=== PATIENT | female | born 1990 | race Caucasian/White ===

== ENCOUNTER 2021-10-01 13:35 | Outpatient (CLI) | payer OTHER ==
--- NOTE | 2021-10-01 14:45 | Ultrasound Report ---
PROCEDURE: Pelvic w/Transvaginal INDICATIONS: INTERMENSTRAL BLEEDING TECHNIQUE: Real-time scanning was performed of the pelvic organs, with image documentation. Additional endovagi nal scanning was necessary due to incomplete visualization of the adnexal and endometrial structures by transabdominal scanning. COMPARISON: None. FINDINGS: No pathologic free abdominal or pelvic fluid. Uterus: Uterus is normal in size at 8.4 x 2.3 x 4.2 cm. Uterine volume measures 41.1 mL. The endome trium measures 4 mm in combined thickness. Homogeneous uterine echotexture. No focal intrauterine le sions. Ovaries: Bilateral ovaries are normal in size and appearance. No suspicious ovarian or adnexal mass lesions. Right ovary measures 3.9 x 1.6 x 2.7 cm with ovarian volume of 8.6 mL. Left ovary measures 3 .1 x 1.7 x 2.3 cm with ovarian volume of 6.4 mL. IMPRESSION: Normal sonographic evaluation of the pelvis. Reviewed by: Phillip Thomas MD on 10/01/2021 2:44 PM PDT Approved by: Phillip Thomas MD on 10/01/2021 2:44 PM PDT Station ID: [id number]
== END 2021-10-01 13:36 | disposition home or self-care (01) ==
LOC: DI 13:35
PROVIDERS: ATTEND Obstetrics & Gynecology
DX: N92.1 Excessive and frequent menstruation with irregular cycle (principal)